=== PATIENT | female | born 1945 | race Caucasian/White ===

== ENCOUNTER 2017-08-02 10:48 | Outpatient (CLI) | payer OTHER | END 2017-08-02 10:56 | disposition home or self-care (01) | LOC: RAD 10:48 | DX: E78.2 Mixed hyperlipidemia (principal); K29.60 Other gastritis without bleeding; K44.9 Diaphragmatic hernia without obstruction or gangrene; G25.81 Restless legs syndrome ==

== ENCOUNTER 2019-05-14 07:19 | Outpatient (CLI) | payer OTHER | END 2019-05-14 07:29 | disposition home or self-care (01) | LOC: SONOGRAMA 07:19 → MAMO-SONO 08:15 | DX: R16.0 Hepatomegaly, not elsewhere classified (principal) ==

== ENCOUNTER 2019-07-30 08:30 | Outpatient (CLI) | payer OTHER | END 2019-07-30 13:18 | disposition home or self-care (01) | LOC: RX STUDY 08:30 | DX: R10.13 Epigastric pain (principal) ==

== ENCOUNTER 2021-08-25 14:46 | Emergency (ER) | payer OTHER ==
[~2021-08-25] VITALS: Ht 154.9 cm; Wt 68.0 kg
== END 2021-08-25 15:53 | disposition home or self-care (01) ==
LOC: ER 14:46
DX: R23.2 Flushing (principal)

== ENCOUNTER 2022-06-06 14:48 | Outpatient (CLI) | payer OTHER | END 2022-06-06 14:58 | disposition home or self-care (01) | LOC: PPH VACUNA 14:48 | PROVIDERS: ATTEND Emergency Medicine Pediatric Emergency Medicine | DX: Z23 Encounter for immunization (principal) ==

== ENCOUNTER 2024-02-15 10:49 | Outpatient (CLI) | payer OTHER | END 2024-02-15 10:54 | disposition home or self-care (01) | LOC: RAD 10:49 | PROVIDERS: ATTEND Physical Medicine & Rehabilitation | DX: M17.11 Unilateral primary osteoarthritis, right knee (principal); M17.12 Unilateral primary osteoarthritis, left knee ==